=== PATIENT | male | born 1995 | race Caucasian/White ===

== ENCOUNTER 2022-10-08 18:49 | Emergency (ER) | payer OTHER, SELFPAY ==
--- NOTE | ~2022-10-08 | XR_ITS ---
EXAMINATION: XR CHEST CLINICAL INFORMATION: Cough COMPARISON: None TECHNIQUE: 2 views of the chest were obtained. FINDINGS: No significant abnormality is noted involving the heart, lungs, mediastinum, bony thorax or soft tissues. XR/XR chest 2V IMPRESSION: Unremarkable examination.
[2022-10-08 18:52] VITALS: BP 129/69; PULSE 84; RESP 18; TEMP 38.3; O2SAT 100; BMI 22.8
--- NOTE | 2022-10-08 18:52 | ED_ITS ---
HPI - General Adult General Chief complaint: General Medical Stated complaint: flu like symptoms Time Seen by Provider: 10/08/22 19:23 Source: patient Mode of arrival: ambulatory Limitations: no limitations History of Present Illness HPI narrative: 26 yo male with no significant medical history presents to the ER c/o 5 days of flu like symptoms. He reports body aches, subjective fevers, productive cough, nausea and vomiting since the weekend. He took 3 at home COVID tests that were negative. He feels like he has the flu. 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 He was sent home. He states he last vomited yesterday and had decreased PO intake today but was able to eat and drink some. No abdominal pain, chest pain, or difficulty breathing. MD complaint: flu like symptoms Onset (ago): day(s) (5) Severity: moderate Quality: aching Pain Consistency: intermittent Relieving factors: rest Associated symptoms: cough, fever/chills, headaches, loss of appetite, malaise, nausea/vomiting and weakness Treatments prior to arrival: none Related Data Allergies Allergy/AdvReac Type Severity Reaction Status Date / Time No Known Allergies Allergy Verified 10/08/22 18:55 Review of Systems Review of Systems: Yes all other systems are reviewed and are negative [facility] Social History Social History Advance Directives: No Advance Directives Information Provided: Yes Physical Exam ED Vital Signs: Vital Signs - 24 hr 10/08/22 18:52 Temperature 100.9 F H Pulse Rate 84 Respiratory Rate 18 Blood Pressure 129/69 Pulse Oximetry 100 Oxygen Delivery Method Room Air BMI result Body Mass Index 22.8 Appearance: Alert. Oriented X3. No acute distress. Eyes: Pupils equal, round and reactive to light. ENT: Pharynx normal. Neck: Normal inspection. Neck supple. CVS: Normal heart rate and rhythm. Pulses normal. Respiratory: No respiratory distress. Breath sounds normal. Abdomen: Soft and nontender. +BS x4 Skin: Skin warm and dry. Normal skin color. Normal skin turgor. No rashes. Extremities: No lower extremity edema. Neuro: Oriented X 3. +Grossly normal, nonfocal. steady gait Course Course Course Narrative: 26 yo male presents to the ER for evaluation of 5 days of body aches, subjective fevers, productive cough, N/V, and decreased PO intake. Took 3 COVID tests at home and were negative. Had to leave work today due to weakness. last vomited yesterday morning. VSS. Will get CXR and Flu/Covid swabs. Reevaluation(s) Reevaluation #1: Patient to be influenza A positive. Not a candidate for Tamiflu treatment. Stable for discharge home with supportive care. We discussed diagnosis and management. Workup provided per request. Medical Decision Making Medical Decision Making [facility] Narrative: 26 yo male presenting with flu like symptoms. Differential Diagnosis Differential Diagnoses: The differential diagnosis associated with the presentation includes influenza, covid,rsv, other viral syndrome, pneumonia, bronchitis, gastroenteritis, less likely appendicitis, colitis Lab Data [facility] Lab Attestation statement: I reviewed the patient's lab results. flu A positive Labs: Lab Results 10/08/22 10/08/22 Range/Units 19:09 19:09 COVID-19 (RUSTAM) Negative (Negative) COVID-19 Clin Com See Note Influenza Type A (AKASH) Positive A (Negative) Influenza Type B (AKASH) Negative (Negative) Influenza A & B Note See Note Independent Interpretation I performed an independent interpretation of an: Plain X-Ray Interpretation: cxr reviewed - no apprecaited opacitity, well expanded, clear lungs Prescription Management I considered prescription management with: Antiviral and Antibiotic none indicated given no PNA Critical Care Time Critical Care Time Critical Care Time: No Discharge Plan Discharge Clinical Impression: Influenza A Patient Disposition: Home, Self-Care Instructions: Influenza (ED) Additional Instructions: you tested positive for influenza A your chest x-ray was normal treatment is rest and supportive care rest. Drink plenty of fluids. take over the counter cold/flu medications as needed for your symptoms. take Tylenol and/or Motrin as needed for fevers and body aches. if you develop new or worsening symptoms call 911 or come back to the ER for further evaluation. Stand Alone Forms: Work/School Release
[2022-10-08 19:34] LABS: COVID-19 Test Negative (Negative); IDNOW Serial# BCCEAD1C
[2022-10-08 19:42] LABS: IDNOW Serial# 9DB6401D; Influenza A Positive (Negative); Influenza B2 Negative (Negative)
[2022-10-08] MEDS: Acetaminophen 325 MG TABLET 975 MG PO (19:53)
== END 2022-10-08 19:58 | disposition home or self-care (01) ==
PROVIDERS: Physician Assistant; Emergency Provider Internal Medicine
DX: J10.1 Influenza due to other identified influenza virus with other respiratory manifestations (principal); R05.9 Cough, unspecified; R51.9 Headache, unspecified; R11.2 Nausea with vomiting, unspecified; Z20.828 Contact with and (suspected) exposure to other viral communicable diseases; Z20.822 Contact with and (suspected) exposure to COVID-19
CPT/HCPCS: 71046; 87502; 87635; 99283